=== PATIENT | female | born 2000 | race Caucasian/White ===

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

== ENCOUNTER 2021-05-20 10:09 | Emergency (ER) | payer OTHER ==
[2021-05-20 11:11] LABS: BASOPHIL 0.2 % (0-2); EOSINOPHIL 3.6 % (0-5); HCT 33.4 % (37.0-47.0); HGB 10.4 g/dl (12.5-16.0); LYMPHOCYTE 16.7 % (15-48); MCH 26.5 pg (25.0-31.0); MCHC 31.1 g/dL (32.0-36.0); MCV 85.2 fL (78.0-100.0); MONOCYTE 6.8 % (0-12); MPV 10.1 fL (6.0-9.5); NEUTROPHIL 72.4 % (41-80); NRBC 0; PLT 272 K/uL (150-400); RBC 3.92 M/uL (4.20-5.40); RDW 15.3 % (11.5-14.0); WBC 9.1 K/uL (4.0-10.5)
[2021-05-20 11:30] LABS: ALBUMIN 2.6 g/dL (3.4-5.0); BILIRUBIN - TOTAL 0.3 mg/dL (0.2-1.0); BUN/CREAT RATIO (CALC) 4.8 RATIO; CREATININE 0.62 mg/dL (0.51-0.95); GLOBULIN (CALCULATION) 4.4 g/dL; POTASSIUM 3.9 mmol/L (3.5-5.1)
== END 2021-05-20 14:15 | disposition home or self-care (01) ==
LOC: FER 10:09
PROVIDERS: Emergency Medicine
DX: O98.513 Other viral diseases complicating pregnancy, third trimester (principal); B34.9 Viral infection, unspecified; O99.333 Smoking (tobacco) complicating pregnancy, third trimester; F17.210 Nicotine dependence, cigarettes, uncomplicated; Z88.5 Allergy status to narcotic agent; Z3A.38 38 weeks gestation of pregnancy
CPT/HCPCS: 36415; 80053; 85025; 87880; J2930; J7030

== ENCOUNTER 2021-05-28 00:06 | Inpatient (IN) | payer OTHER ==
[2021-05-28 00:55] LABS: HCT 33.5 % (37.0-47.0); HGB 10.5 g/dl (12.5-16.0); MCH 26.6 pg (25.0-31.0); MCHC 31.3 g/dL (32.0-36.0); MPV 9.7 fL (6.0-9.5); RBC 3.94 M/uL (4.20-5.40); RDW 15.1 % (11.5-14.0)
[2021-05-28 01:01] LABS: BILIRUBIN NEGATIVE (NEGATIVE); BLOOD NEGATIVE Ery/uL (NEGATIVE); CLARITY CLEAR (CLEAR); COLOR YELLOW (YELLOW); GLUCOSE (U) NORMAL (NORMAL); LEUKOCYTES NEGATIVE Leu/uL (NEGATIVE); NITRITE NEGATIVE (NEGATIVE); PROTEIN TRACE (LOW) mg/dL (NEGATIVE); SPECIFIC GRAVITY 1.025 (1.001-1.030); UROBILINOGEN 0.2 mg/dL (0.2-1.0); pH 6.5 (5.0-9.0)
[2021-05-29 06:52] LABS: HCT 33.3 % (37.0-47.0); HGB 10.1 g/dl (12.5-16.0); MCH 26.4 pg (25.0-31.0); MCHC 30.3 g/dL (32.0-36.0); MCV 86.9 fL (78.0-100.0); RBC 3.83 M/uL (4.20-5.40); RDW 15.3 % (11.5-14.0); WBC 11.6 K/uL (4.0-10.5)
[2021-05-30] MEDS ORDERED: PRENATAL FORMU1 EACH PO (08:12)
[2021-05-30] MEDS ORDERED: COLACE100 MG PO (08:12)
[2021-05-30] MEDS ORDERED: FEOSOL325 MG PO (08:15)
[2021-05-30] MEDS ORDERED: IBUPROFEN800 MG PO (08:22)
== END 2021-05-30 12:00 | disposition home or self-care (01) | DRG 806 ==
LOC: FOD 00:06 → FOB 00:11 → FOD 00:16 → FOB 00:17
PROVIDERS: Obstetrics & Gynecology; ADMIT Specialist
PROC: 10E0XZZ Delivery of Products of Conception, External Approach (ICD-10-PCS; principal; 2021-05-28)
PROC: 0UQMXZZ Repair Vulva, External Approach (ICD-10-PCS; 2021-05-28)
PROC: 3E033VJ Introduction of Other Hormone into Peripheral Vein, Percutaneous Approach (ICD-10-PCS; 2021-05-28)
DX: O99.02 Anemia complicating childbirth (principal); D62 Acute posthemorrhagic anemia; Z37.0 Single live birth; Z3A.39 39 weeks gestation of pregnancy; Z20.822 Contact with and (suspected) exposure to COVID-19; O99.344 Other mental disorders complicating childbirth; F31.9 Bipolar disorder, unspecified; O99.52 Diseases of the respiratory system complicating childbirth; J45.909 Unspecified asthma, uncomplicated; O36.8930 Maternal care for other specified fetal problems, third trimester, not applicable or unspecified; O99.214 Obesity complicating childbirth; O71.89 Other specified obstetric trauma; O69.89X0 Labor and delivery complicated by other cord complications, not applicable or unspecified; O99.334 Smoking (tobacco) complicating childbirth
CPT/HCPCS: 36415; 81003; 90707; J2540; J7120; U0002